=== PATIENT | male | born 1960 | race Caucasian/White ===

== ENCOUNTER 2022-03-13 11:50 | Inpatient (IN) | payer OTHER ==
[~2022-03-13] VITALS: Ht 190.5 cm; Wt 80.9 kg
[2022-03-13 12:36] LABS: BASOPHILS ABSOLUTE AUTO 0.09 K/mm3 (0.00-0.23); BASOPHILS PERCENT AUTO 0 % (0-2); EOSINOPHILS ABSOLUTE AUTO 0.02 K/mm3 (0.00-0.68); EOSINOPHILS PERCENT AUTO 0 % (0-6); Hematocrit 37.1 % (37.0-53.0); Hemoglobin 12.2 g/dL (13.5-17.5); IMMATURE GRAN ABSOLUTE AUTO 0.96 K/mm3 (0.00-0.10); IMMATURE GRAN PERCENT AUTO 3 % (0-1); LYMPHOCYTES ABSOLUTE AUTO 0.58 K/mm3 (0.84-5.20); LYMPHOCYTES PERCENT AUTO 2 % (21-46); MONOCYTES ABSOLUTE AUTO 1.72 K/mm3 (0.16-1.47); MONOCYTES PERCENT AUTO 6 % (4-13); Mean Corpuscular HGB 28.2 pg (26.0-34.0); Mean Corpuscular HGB Conc 32.9 g/dL (31.5-36.5); Mean Corpuscular Volume 86 fL (80-100); Mean Platelet Volume 10.7 fL (9.1-12.4); NEUTROPHILS PERCENT AUTO 89 % (41-73); Platelet Count 261 K/mm3 (150-400); RDW Coefficient Variation 13.6 % (11.7-14.2); RDW Standard Deviation 42.9 fL (35.1-46.3); Red Blood Cell Count 4.33 M/mm3 (4.30-5.90); White Blood Cell Count 29.77 K/mm3 (4.00-11.30)
[2022-03-13 12:53] LABS: Albumin, Blood 1.5 g/dL (3.4-5.0); Albumin/Globulin Ratio 0.3 (0.8-1.8); Bilirubin, Direct 0.7 mg/dL (0.0-0.3); Bilirubin, Indirect 0.5 mg/dL (0.1-0.7); Bilirubin, Total 1.2 mg/dL (0.1-1.0); Bun/Creatinine Ratio 41.6 (12.0-20.0); Calcium, Blood 8.3 mg/dL (8.5-10.1); Creatinine, Blood 0.75 mg/dL (0.60-1.20); Globulin, Blood 5.1 g/dL (2.2-4.0); Magnesium, Blood 1.9 mg/dL (1.6-2.4); Phosphorus, Blood 3.1 mg/dL (2.5-4.9); Potassium, Blood 4.3 mmol/L (3.5-5.5); Total Protein, Blood 6.6 g/dL (6.4-8.2)
[2022-03-13 13:10] LABS: International Normalized Ratio 1.15
[2022-03-13 13:27] LABS: Influenza A, PCR NEGATIVE (NEGATIVE); Influenza B, PCR NEGATIVE (NEGATIVE); Resp Syncytial Virus, PCR NEGATIVE (NEGATIVE); SARS-Cov-2 (COVID-19) PCR, MMC NEGATIVE (NEGATIVE)
[2022-03-13 13:49] LABS: Source, Urine Clean Catch
[2022-03-13 14:15] LABS: Appearance, Urine Clear (Clear); Bilirubin, Urine Neg (Neg); Blood, Urine 1+ (Neg); Color, Urine Yellow (P-Yellow); Glucose Qualitative, Urine 4+ (Neg); Ketones, Urine 4+ (Neg); Leukocyte Esterase, Urine Neg (Neg); Nitrite, Urine Neg (Neg); Protein, Urine Neg (Neg); Specific Gravity, Urine 1.025 (1.003-1.022); Urobilinogen, Urine 1+ (Normal)
[2022-03-13 14:34] LABS: Red Blood Cells, Urine 0-2 /hpf (0-2); White Blood Cells, Urine 0-2 /hpf (0-5)
[2022-03-13 14:35] LABS: Bacteria Mod /hpf; Squamous Epithelial Cells Not Seen /hpf (Few)
--- NOTE | 2022-03-13 14:50 | NUR ---
PT HERE FROM CT/X-RAY VIA [facility]. 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 PT HAS FERNÁNDEZ. IV X 2. ALERT AND ORIENTED. History, Chart, Medications and Allergies reviewed before start of procedure.
[2022-03-13 16:17] LABS: Base Excess Venous -13.5 mmol/L; Bicarbonate Venous 14.7 mmol/L (24.0-30.0); PCO2 Venous 33.6 mmHg (38-42); PO2 Venous 77.1 mmHg (38-42); pH Blood Venous 7.23 (7.34-7.37)
--- NOTE | 2022-03-13 16:23 | NUR ---
03/13/22 1623 JOSE HALL PLACED PRIOR TO ENTERING OR.
[2022-03-13 16:48] LABS: PCO2 Arterial 40.2 mmHg (35-45); PO2 Arterial 402 mmHg (80-100); pH Blood Arterial 7.26 (7.35-7.45)
[2022-03-13 18:35] LABS: Calcium, Blood 7.8 mg/dL (8.5-10.1); Creatinine, Blood 0.67 mg/dL (0.60-1.20); Potassium, Blood 4.5 mmol/L (3.5-5.5)
--- NOTE | 2022-03-13 18:57 | NUR ---
PT TO ICU FROM OR AT 1750. PT ARRIVES INTUBATED, PLACED ON VENT WITH SETTINGS AC 16/450/5/45%. 8.0 TUBE, 26 AT LIP. PROPOFOL STARTED @ 25 MCG/KG/MIN. 2 LR BOLUSES RUNNING FROM OR, PER OR STAFF, INSULIN GTT NOT RUNNING AND PT WAS GIVEN A "5 UNIT BOLUS OVER 30 MINS", CBG 465 ON ARRIVAL. VITAL SIGNS STABLE ON ARRIVAL. PT HAS LEFT LOWER EXTREMITY AMPUTATION COVERED WITH CLEAN DRESSING, DAVOL WOUND SUCTION WITH SANGUIOUS OUTPUT. REVENUE ANALYST TO REVIEW ADMIT ORDERS AND MAKE NECESSARY ADJUSTMENTS. WILL REPORT TO ONCOMING NURSE.
[2022-03-13 20:13] LABS: PCO2 Arterial 28.7 mmHg (35-45); PO2 Arterial 150 mmHg (80-100); pH Blood Arterial 7.36 (7.35-7.45)
--- NOTE | 2022-03-13 21:20 | NUR ---
ASSUMED CARE. PT STARTED TO WAKE UP PULLING AGAINST RESTRAINTS AND TRYING TO SIT UP. ORIENTED HIM TO SITUATION, HE GRIPPED TO UNDERSTANDING BUT WAS GETTING VERY AGGITATED. SHOOK HIS HEAD NO TO PAIN. INCREASED PROPOFOL TO 40 FOR FEW MINUTES UNTIL 4MG OF VERSED WAS GIVEN THEN IT WAS TURNED BACK DOWN TO 25MCQ. NEURO INTACT. LS DIM IN BASES, CLEAR UPPER LOBES. COUGH MOIST, SUCTION WHITE THICK SECRETIONS FROM ETT. ETT 8/26 AT LIPS. AC/VC SETTINGS 16/450/5/45%. TENDS TO BREATH OVER VENT AT 21-24 BREATHS/MIN. SINUS ON MONITOR WITH RATE IN THE 90'S. BLOOD SUGAR 433, STARTED INSULIN DRIP AT 1 UNIT, NOW AT 2 UNITS FOR BLOOD SUGAR 402. LR STARTED AT 200ML/HR. NEW IV TO LEFT FA 20G. SCD PLACED. ABD SOFT NON-TENDER, ATTENDS DRY. FERNÁNDEZ BRIGHT ORANGE URINE, CATH CARE PERFORMED. HELD PO MEDS OG TUBE IS NOT ABLE TO BE VERIFED ON XRAY. DEVOL WOUND SUCTION DRAIN TO LEFT BKA, DRESSING INTACT, BRIGHT RED DRAINAGE IN TUBE ONLY. WILL CONTINUE TO MONITOR.
[2022-03-13 21:31] LABS: Bun/Creatinine Ratio 42.9 (12.0-20.0); Calcium, Blood 8.1 mg/dL (8.5-10.1); Creatinine, Blood 0.72 mg/dL (0.60-1.20); Potassium, Blood 4.8 mmol/L (3.5-5.5)
[2022-03-13 22:22] LABS: Source, Urine Foley catheter
[2022-03-13 22:27] LABS: Bilirubin, Urine Neg (Neg); Blood, Urine 1+ (Neg); Glucose Qualitative, Urine 4+ (Neg); Ketones, Urine 4+ (Neg); Leukocyte Esterase, Urine Neg (Neg); Nitrite, Urine Neg (Neg); Protein, Urine 2+ (Neg); Specific Gravity, Urine 1.025 (1.003-1.022); Urobilinogen, Urine 1+ (Normal)
[2022-03-13 22:29] LABS: Appearance, Urine Clear (Clear); Color, Urine Yellow (P-Yellow)
[2022-03-13 22:34] LABS: Amorphous Light (0-Heavy); Bacteria Few /hpf; Red Blood Cells, Urine 0-2 /hpf (0-2); Squamous Epithelial Cells Not Seen /hpf (Few); White Blood Cells, Urine 0-2 /hpf (0-5)
[2022-03-14 03:22] LABS: Hematocrit 29.4 % (37.0-53.0); Hemoglobin 9.5 g/dL (13.5-17.5); Mean Corpuscular HGB 28.1 pg (26.0-34.0); Mean Corpuscular HGB Conc 32.3 g/dL (31.5-36.5); Mean Corpuscular Volume 87 fL (80-100); Mean Platelet Volume 10.3 fL (9.1-12.4); Platelet Count 206 K/mm3 (150-400); RDW Coefficient Variation 13.4 % (11.7-14.2); RDW Standard Deviation 42.4 fL (35.1-46.3); Red Blood Cell Count 3.38 M/mm3 (4.30-5.90); White Blood Cell Count 25.42 K/mm3 (4.00-11.30)
[2022-03-14 03:39] LABS: BAND PERCENT MAN 19 % (0-8); BASOPHILS PERCENT MAN 0 % (0-2); EOSINOPHILS PERCENT MAN 0 % (0-6); LYMPHOCYTES ABSOLUTE MAN 0.25 K/mm3 (0.84-5.20); LYMPHOCYTES PERCENT MAN 1 % (21-46); MONOCYTES ABSOLUTE MAN 1.77 K/mm3 (0.16-1.47); MONOCYTES PERCENT MAN 7 % (4-13); MYELOCYTE ABSOLUTE MAN 0.25 K/mm3 (0.00-0.00); MYELOCYTE PERCENT MAN 1 % (0-0); NEUTROPHILS ABSOLUTE MAN 23.13 K/mm3 (1.96-9.15); SEG NEUTROPHILS PERCENT MAN 72 % (41-73); TOTAL CELLS COUNTED 100
[2022-03-14 03:47] LABS: Magnesium, Blood 1.7 mg/dL (1.6-2.4); Thyroid Stimulating Hormone 0.482 uIU/mL (0.360-4.800)
[2022-03-14 03:48] LABS: Albumin, Blood 1.2 g/dL (3.4-5.0); Albumin/Globulin Ratio 0.3 (0.8-1.8); Bilirubin, Total 0.9 mg/dL (0.1-1.0); Bun/Creatinine Ratio 37.8 (12.0-20.0); Calcium, Blood 7.6 mg/dL (8.5-10.1); Creatinine, Blood 0.74 mg/dL (0.60-1.20); Globulin, Blood 4.4 g/dL (2.2-4.0); Potassium, Blood 4.4 mmol/L (3.5-5.5); Total Protein, Blood 5.6 g/dL (6.4-8.2)
--- NOTE | 2022-03-14 03:59 | NUR ---
WHEN REPOSITIONING THE PT'S RIGHT HAND FOR BLOOD SUGAR CHECKS. NOTICED THAT THERE WAS PINK TINGED FLUID RUNNING DOWN HAND AND SEVERAL SPOTS ON BEDDING. APPARENTLY WHEN THE PATIENT WAS PULLING AGAINST RESTRAINTS HE MUST OF OPENED UP AN ABCESS THAT HE HAD ON THE LEFT MIDDLE FINGER KNUCKLE AREA. WHEN COMPRESSED THERE WAS EXCESSIVE AMOUNT OF PUS DRAINAGE THAT CAME OUT. THERE WAS A SMALL OPENING THAT WAS DEEP DOWN TO THE KNUCKLE, TUNNELING IS NOTED IN A 180 CIRCUMFRANCE AND UP AND OVER THE KNUCKLE DOWN INTO HAND. AREAS IS SLIGHTLY DISCOLORED NOW RED IN TONE, SWELLING WAS NOTED BEFORE BUT THERE IS MORE TO THE AREA THEN PREVIOUS ASSESSMENT. THERE WAS DRY FLACKY SKIN PRIOR THAT WAS NOTED DURING THE BATH BUT NO OPENING. CLEANSED, AND WRAPPED WITH GAUZE. PIC IN CHART. AREA NEEDS TO HAVE I&D DONE.
--- NOTE | 2022-03-14 05:39 | NUR ---
SHIFT SUMMARY; PT REMAINS SEDATED ON PROPOFOL 20MCQ/HR. ABLE TO FOLLOW COMMANDS AND ANSWER QUESTIONS WHEN SEDATION IS LIFTED. DOES TEND TO PULL AT RESTRAINTS AND GET AGGITATED EASILY WHEN SEDATION IS LIFTED. DIMINISHED LS T/O. MOIST COUGH, THICK WHITE MODERATE AMOUNT OF SECRETIONS VIA ETT. VENT SETTINGS REMAIN THE SAME AT 16/450/5, FIO2 DECREASED TO 30%, SATS REMAIN 100%. STILL TENDS TO OVER BREATH THE VENT WITH RATES 20-24. SINUS ON MONITOR WITH A FEW EPISODES OF AFIB THAT RATE NEVER GOT OVER 110. AFIB ONLY LAST FOR FEW MIN. BP SOFT SYSTOLIC IN THE 90'S, MAP >65. EDEMA NOTED TO RLE AND RIGHT HAND. ABCESS THAT OPENED UP THIS AM TO RIGHT HAND, WITH COPIOUS PURLENT DRAINAGE, SEVERE UNDERMINING THAT WENT DOWN FINGER AND HAND IN A 180 CIRCUMFRANCE. SITE CAN BENIFIT FROM I&D, AND CT SCAN. POSITIVE BLOOD CULTURE GRAM (-) COCCI. SURGICAL WOUND DRESSING HAS REMAINED INTACT, DEVOL DRAINAGE CONTAINER ONLY HAS DRAINAGE IN THE TUBE, NOT ENOUGH TO COUNT. OG NEVER HOOKED UP TO SUCTION AND PO MEDS WITHHELD OG TUBE WAS NEVER VERIFIED IN XRAY, WAS NOT ABLE TO BE SEEN. INSULIN CURRENTLY AT 6 UNITS LAST BLOOD SUGAR JUST BELOW 300, WILL GET ORDER FOR D5 AND START PER ORDERS. GAP IS CLOSED. ATTEMPTED TO CALL TO GIVE UPDATE, LATER SHE RETURNED CALL FROM ER CONFUSED. FOUND OUT SHE WAS BEING ADMITTED FOR INFECTION ON 3RD FLOOR. BROTHER GURDEEP ALSO CALLED BUT IS NOT ON THE LIST, INFORMED HIM HE NEEDS TO CONTACT UNTIL PATIENT IS ABLE TO GIVE CONSENT. FERNÁNDEZ OUTPUT 1200. WILL REPORT TO DAYSVTFT.
--- NOTE | 2022-03-14 09:21 | NUR ---
ASSUMED CARE BEDSIDE REPORT FROM KALE THORNTON AT 0700. PT INTUBATED AND SEDATED. PROPOFOL GTT INFUSING. PT FOLLOWS COMMANDS. VENT CHANGED TO SPONT 8/5/30%. LUNGS CLEAR. SMALL AMOUNT OF THIN CLEAR SECRETIONS FROM ETT. OGT PLACED TO LIS. SR, RATE 70'S. BP STABLE. FERNÁNDEZ PATENT, DRAINING YELLOW URINE c SEDIMENT TO GRAVITY. DRESSING TO L BKA, DRAIN INTACT, SCANT SANGENOUS DRAINAGE IN TUBING. WOUND TO RIGHT HAND, WILL DISCUSS c SURGEON. INSULIN AND D5 PLACED ON STANDBY. DR COHN ROUNDED. PLAN FOR EXTUBATION THIS SHIFT. WILL CONTINUE TO MONITOR.
[2022-03-14 13:34] LABS: Vancomycin, Trough 19.3 ug/mL (5.0-10.0)
--- NOTE | 2022-03-14 17:37 | NUR ---
SHIFT SUMMARY PT EXTUBATED THIS SHIFT, 1130. TOLERATED WELL. STRONG COUGH. ON RA, O2 SATS >93%. LUNGS CLEAR. PASSED BEDSIDE SWALLOW, ADVANCED DIET TO MECH SOFT. DR JOHNSON ROUNDED. WILL CHANGE DRESSING TOMORROW. C/D/I. RIGHT HAND ASSESSED AND PACKED c 1/4 PACKING. PURLENT DRAINAGE OUT. AT APPROX 1600, PT BEGAN TO DEVELOP FEVER. CURRENTLY 103.1, HAS NOT RESPONDED TO TYLENOL OR FANS. LEFT MESSAGE c DR JOHNSON, CALLED DR LEONARDO. STATES TO BE EXPECTED c POSSIBLE ENDOCARDITIS. TO BE MANAGED c TYLENOL. PT DENIES PAIN. PT MORE LETHARGIC BUT WAKES c VERBAL STIMULI AND ANSWERS QUESTIONS APPROPRIATELY. FERNÁDNEZ PATENT, DRAINING 800 ML ORANGE URINE c SEDIMENT TO GRAVITY. WILL CONTINUE TO MONITOR UNTIL REPORT TO ONCOMING NURSE.
--- NOTE | 2022-03-14 20:26 | NUR ---
ASSUMED CARE. AOX3, ABLE TO ANSWER QUESTIONS APPROPRIATLY AND MAKE NEEDS KNOWN, DROWSY TENDS TO FALL RIGHT BACK TO SLEEP WHEN ALONE. DIAPHORETIC TO THE POINT LEADS ARE COMING OFF. REPLACED LEADS, AND PLACED FAN ON HIM. TEMP CURRENTLY 101 AND DECREASING. DENIES ANY PAIN OR DISCOMFORT. LS DIM IN BASES, COUGH IS PRODUCTIVE ENCOURAGED SPITTING SPUTUM OUT HE SWALLOWED IT, GAVE SUCTION TUBING. BLOOD SUGAR 386, MEDS GIVEN. DRESSING TO RIGHT HAND CDI WITH PACKING STRIP IN PLACE. LEFT BKA DRESSING CDI, SITE IS WNL, NO REDNESS, INCREASE IN PAIN, OR INCREASE IN SWELLING. FERNÁNDEZ PATENT AND DRAINING. REPOSITIONED. GAVE MORE WATER. IVF INFUSING AND TKO. CALL LIGHT IS IN REACH.
[2022-03-15 03:30] LABS: BASOPHILS ABSOLUTE AUTO 0.04 K/mm3 (0.00-0.23); BASOPHILS PERCENT AUTO 0 % (0-2); EOSINOPHILS ABSOLUTE AUTO 0.04 K/mm3 (0.00-0.68); EOSINOPHILS PERCENT AUTO 0 % (0-6); Hematocrit 27.7 % (37.0-53.0); Hemoglobin 9.3 g/dL (13.5-17.5); IMMATURE GRAN ABSOLUTE AUTO 0.56 K/mm3 (0.00-0.10); IMMATURE GRAN PERCENT AUTO 3 % (0-1); LYMPHOCYTES ABSOLUTE AUTO 0.83 K/mm3 (0.84-5.20); LYMPHOCYTES PERCENT AUTO 4 % (21-46); MONOCYTES ABSOLUTE AUTO 1.57 K/mm3 (0.16-1.47); MONOCYTES PERCENT AUTO 7 % (4-13); Mean Corpuscular HGB 28.9 pg (26.0-34.0); Mean Corpuscular HGB Conc 33.6 g/dL (31.5-36.5); Mean Corpuscular Volume 86 fL (80-100); Mean Platelet Volume 10.9 fL (9.1-12.4); NEUTROPHILS ABSOLUTE AUTO 18.09 K/mm3 (1.96-9.15); NEUTROPHILS PERCENT AUTO 86 % (41-73); Platelet Count 168 K/mm3 (150-400); RDW Coefficient Variation 13.7 % (11.7-14.2); RDW Standard Deviation 42.5 fL (35.1-46.3); Red Blood Cell Count 3.22 M/mm3 (4.30-5.90); White Blood Cell Count 21.13 K/mm3 (4.00-11.30)
[2022-03-15 03:49] LABS: Albumin, Blood 1.1 g/dL (3.4-5.0); Anion Gap 7 mmol/L (6-16); Blood Urea Nitrogen 29 mg/dL (8-24); Bun/Creatinine Ratio 37.3 (12.0-20.0); CO2, Blood 26 mmol/L (21-32); Calcium, Blood 7.2 mg/dL (8.5-10.1); Chloride, Blood 96 mmol/L (98-108); Creatinine, Blood 0.78 mg/dL (0.60-1.20); Glomerular Filtration Rate 101 (60-); Glucose, Blood 388 mg/dL (70-99); Phosphorus, Blood 2.5 mg/dL (2.5-4.9); Potassium, Blood 4.4 mmol/L (3.5-5.5); Sodium, Blood 129 mmol/L (136-145)
--- NOTE | 2022-03-15 07:04 | NUR ---
ASSUMED CARE OF PT AT 0340. REPORT RECEIVED. PT PRESENTS IN BED. ALERT WHEN HE IS AWAKE. NO COMPLAINTS OF PAIN AT THIS TIME. DRESSING TO LEFT STUMP CLEAN DRY AND INTACT. TOLERATES TURNS IN BED. HAVE TITRATED O2 NASAL CANNULA DOWN TO ROOM AIR. MAINTAINS > 90 PERCENT SATURATION. WILL CONTINUE TO MONITOR PT, AND WILL REPORT OFF TO ONCOMING RN.
--- NOTE | 2022-03-15 12:51 | NUR ---
IN TO REDRESS WOUNDS. LEFT LEG STUMP TAKEN DOWN TO SKIN, SUSY INTACT, NO DRAINAGE, INCISION LINE C/D/I. PATELLA WITH REDDENED AREA NOTED, DR. MO DRESSED WITH FOAM BANDAGE UNDER THE POST OP STOCKINETTE. RIGHT HAND WOUND ASSESSED, CONTINUES WITH PINK PURULENT DRAINAGE FROM "STAB" LIKE HOLE IN THE RIGHT MIDDLE KNUCKLE. REDRESSED WITH 1/4" PACKING, ADAPTIC (NON- ADHERENT) DRESSING AND KERLIX. ORDERS FOR DRESSING CHANGES RECEIVED. PT HAD A DIFFICULT TIME HOLDING UP HIS STUMP FOR . HE HAD TO BE FREQUENTLY REMINDED TO LIFT HIS LEG. DENIES ANY PAIN. STATES HE IS HAVING SOME "KIDNEY" PAIN HE IS EXPERIENCING "THIS NEW KIDNEY ISSUE". WHEN DISCUSSED WITH HIM THAT ACUTE KIDNEY INJURY DOESN'T USUALLY INDICATE PAINFUL KIDNEYS, QUESTIONED AGAIN RE: THAT PAIN, SAID, "HE JUST NOTICES IT".
[2022-03-15 14:01] LABS: Vancomycin, Trough 26.5 ug/mL (5.0-10.0)
--- NOTE | 2022-03-15 16:01 | NUR ---
THIS AFTERNOON, PT HAS BEEN GOING IN AND OUT OF AFIB, RATE IS INCREASING TO THE LOW 100'S. PT HAS BEEN RESTING. BP STABLE.
--- NOTE | 2022-03-15 17:12 | NUR ---
Review of patient decline with demographic analyst. Review of patient in rounds. Called to have a careful conversation about future care needs and code status. has lots of family support through social media and texting. She does not have local support. Their son arrived today with his family. is having great stress in that she was supposed to start a promotion this wee and could not due to his illness. 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 She want to be with patent but feels his aggitation is worse when she is here. She states he was not complaining of any issues until recently. We discussed prognosis and brief discussion of he might not imporve enough to discuss oncology care. She reviewed some of what doctor Sanjeev told her and confirmed that he was preparing her for possile decline. She is tarting to process his cancer diagnosis. We discussed that he could end up back on the ventilator. She knows that may be futility. She relayed a serious discussion they had about his scientology princess and his desire to fight to the . Made her promise to do everying possible to save him. Advised her we will respect his wishes and also support her through the process. Will follow up.
--- NOTE | 2022-03-15 17:38 | NUR ---
RUBIO CONTINUES WITH INTERMITTENT AFIB/SINUS TACH RATE 100-110. BREATHING EASY NON LABORED, GOOD COUGH AND DEEP BREATHE, BP STABLE. RESTLESS ALL AFTERNOON, CONTINUES TO SAY THAT HE DOESN'T GET ANY REST IN THE HOSPITAL. RIGHT HAND DRSG WITH EVIDENCE OF OOZING. DIDN'T FEEL LIKE EATING HIS DINNER, ONLY HAD A FEW BITES. FERNÁNDEZ WITH >1L OUTPUT. LR @ 75ML/HR CONTINUES. BLOOD SUGARS REMAIN ELEV ALL T/O THE DAY, LUNCH AND DINNER BOTH 371 WITH 10U COVERAGE. PT STATES DOES NOT USE INSULIN AT HOME. RIGHT FOOT WITH BRUISING NOTED ON THE TOP OF FOOT. NO OTHER CHANGES, WILL CONTINUE TO MONITOR AND TREAT, REPORTING OFF TO NEXT SHIFT WHEN ABLE.
--- NOTE | 2022-03-15 23:32 | NUR ---
PT ARRIVED TO ROOM ON UNIT AT 2330 W/ POSSESSIONS.
[2022-03-16 05:44] LABS: Hematocrit 32.8 % (37.0-53.0); Hemoglobin 10.8 g/dL (13.5-17.5); Mean Corpuscular HGB 28.2 pg (26.0-34.0); Mean Corpuscular HGB Conc 32.9 g/dL (31.5-36.5); Mean Corpuscular Volume 86 fL (80-100); Mean Platelet Volume 11.2 fL (9.1-12.4); Platelet Count 214 K/mm3 (150-400); RDW Coefficient Variation 13.4 % (11.7-14.2); RDW Standard Deviation 41.6 fL (35.1-46.3); Red Blood Cell Count 3.83 M/mm3 (4.30-5.90); White Blood Cell Count 19.44 K/mm3 (4.00-11.30)
[2022-03-16 06:16] LABS: BAND PERCENT MAN 4 % (0-8); BASOPHILS PERCENT MAN 0 % (0-2); EOSINOPHILS ABSOLUTE MAN 0.19 K/mm3 (0.00-0.68); EOSINOPHILS PERCENT MAN 1 % (0-6); LYMPHOCYTES ABSOLUTE MAN 0.58 K/mm3 (0.84-5.20); LYMPHOCYTES PERCENT MAN 3 % (21-46); METAMYELOCYTE ABSOLUTE MAN 0.38 K/mm3 (0.00-0.00); METAMYELOCYTE PERCENT MAN 2 % (0-0); MONOCYTES ABSOLUTE MAN 1.74 K/mm3 (0.16-1.47); MONOCYTES PERCENT MAN 9 % (4-13); Magnesium, Blood 1.5 mg/dL (1.6-2.4); NEUTROPHILS ABSOLUTE MAN 16.52 K/mm3 (1.96-9.15); SEG NEUTROPHILS PERCENT MAN 81 % (41-73); TOTAL CELLS COUNTED 100
[2022-03-16 06:19] LABS: Albumin, Blood 1.2 g/dL (3.4-5.0); Anion Gap 7 mmol/L (6-16); Blood Urea Nitrogen 18 mg/dL (8-24); Bun/Creatinine Ratio 33.9 (12.0-20.0); CO2, Blood 25 mmol/L (21-32); Calcium, Blood 7.6 mg/dL (8.5-10.1); Chloride, Blood 95 mmol/L (98-108); Creatinine, Blood 0.53 mg/dL (0.60-1.20); Glomerular Filtration Rate 113 (60-); Glucose, Blood 385 mg/dL (70-99); Phosphorus, Blood 2.2 mg/dL (2.5-4.9); Potassium, Blood 4.3 mmol/L (3.5-5.5); Sodium, Blood 127 mmol/L (136-145)
--- NOTE | 2022-03-16 06:30 | NUR ---
TRANSFERRED TO UNIT FROM ICU @ 2330. A&Ox4. PLEASANT AND COOPERATIVE WITH CARE. WOUND TO RIGHT MIDDLE FINGER REPACKED AND REBANDAGED. WOUND CARE SUPPLIES IN PT ROOM. FERNÁNDEZ CATH FOR URINARY RETENTION PATENT AND DRAINING TO GRAVITY. IV SITES x3 PATENT AND FLUSHING; LR INFUSING @ 75mL/hr. MAINTAINING O2 >90% ON 2L/min VIA NC. REPORTS HE SLEPT BETTER KNOWING HE IS NEARER HIS WHO IS ANOTHER PATIENT ON THIS FLOOR. MEDICATED x1 W/ 650mg APAP FOR C/O BACK PAIN. NO OTHER CONCERNS NOTED DURING SHIFT. REPORT TO ONCOMING RN.
--- NOTE | 2022-03-16 06:44 | NUR ---
PT REQUESTS TO BE LEFT UNDISTURBED FOR SHIFT CHANGE REPORT THIS MORNING AND NOT DISTURBED UNTIL BREAKFAST/MEDS.
--- NOTE | 2022-03-16 18:16 | NUR ---
SHIFT SUMMARY NO ACUTE CHANGES DURING SHIFT. PT ALERT AND ORIENTED, FOLLOWS COMMANDS. IV FLUIDS D/C'D. DRESSING TO R HAND AND LBKA CHANGED PER ORDERS. PT UP TO CHAIR FOR DINNER. FERNÁNDEZ IN PLACE, DRAINING TO GRAVITY. CALL LIGHT WITHIN REACH.
--- NOTE | 2022-03-17 04:00 | NUR ---
A&Ox4. PLEASANT AND COOPERATIVE WITH CARE. DECLINES O2 VIA NC AND HAS MAINTAINED O2 >92% T/O EVENING WHEN CHECKED. MEDICATED PRN APAP AT 0400 C/O LEFT SHOULDER PAIN. SLEPT MAJORITY OF THE NIGHT, WHICH HE REPORTS IS THE MOST HE'S SLEPT IN DAYS. EXPRESSES GUILT R/T NO LONGER BEING ABLE TO CARE FOR SON AND . ENCOURAGED HIM AND EDUCATED ON RESOURCES WITHIN THE COMMUNITY THE HOSPITAL CAN HELP SET HIM AND HIS FAMILY UP WITH. HE WILL DISCUSS WITH SALES AMBASSADOR. NO ACUTE CONCERNS T/O NIGHT.
[2022-03-17 05:54] LABS: Albumin, Blood 1.2 g/dL (3.4-5.0); Anion Gap 6 mmol/L (6-16); Blood Urea Nitrogen 12 mg/dL (8-24); Bun/Creatinine Ratio 22.9 (12.0-20.0); CO2, Blood 27 mmol/L (21-32); Calcium, Blood 7.8 mg/dL (8.5-10.1); Chloride, Blood 94 mmol/L (98-108); Creatinine, Blood 0.52 mg/dL (0.60-1.20); Glomerular Filtration Rate 114 (60-); Glucose, Blood 310 mg/dL (70-99); Phosphorus, Blood 2.7 mg/dL (2.5-4.9); Potassium, Blood 4.1 mmol/L (3.5-5.5); Sodium, Blood 127 mmol/L (136-145)
--- NOTE | 2022-03-17 18:01 | NUR ---
STUMP DRESSING CHANGE. CHANGED HIS L STUMP DRESSING. WOUND EDGES WELL APPROXIMATED, SUSY INTACT, NO DRAINAGE OR BLEEDING NOTED. MEPIPLEX ON HIS KNEE CAP INTACT & DID NOT CHANGE.
--- NOTE | 2022-03-17 19:12 | NUR ---
SHIFT SUMMARY PT A&O X 4. VSS. F/C INTACT & PATENT. PLEASANT & COOPERATIVE WITH ALL CARE. IS QUIET. BG's RANGING IN THE 300's & COVERED PER EMAR. DINNER BG CAME DOWN TO 192. PT IS APPREHENSIVE ABOUT GETTING OUT OF BED FOR THE 1ST TIME. ENCOURAGED HIM. EXPLAINED THAT PHYS THERAPY WILL LIKELY BEGIN WORKING WITH HIM TOMORROW.
--- NOTE | 2022-03-18 04:45 | NUR ---
SHIFT SUMMARY PATIENT WITH LOW GRADE TEMPERATURE 99.3. AXOX 4 AND BEDREST. LEFT BKA. PIVS REMAIN INTACT. CBG 192. ON ROOM AIR. DENIES CHEST PAIN, SOB, AND N/V. VSS. FERNÁNDEZ PATENT AND DRAINING TO GRAVITY. SPOUSE IN ROOM AT SHIFT CHANGE. SLEPT MOST OF THE SHIFT. CALL LIGHT IN REACH. BED IN LOWEST POSITION. WILL CONTINUE TO MONITOR UNTIL DAY SHIFT NURSE ASSUMES CARE.
[2022-03-18 05:33] LABS: Hematocrit 31.9 % (37.0-53.0); Hemoglobin 10.7 g/dL (13.5-17.5); Mean Corpuscular HGB 28.3 pg (26.0-34.0); Mean Corpuscular HGB Conc 33.5 g/dL (31.5-36.5); Mean Corpuscular Volume 84 fL (80-100); Mean Platelet Volume 10.3 fL (9.1-12.4); Platelet Count 299 K/mm3 (150-400); RDW Coefficient Variation 13.6 % (11.7-14.2); RDW Standard Deviation 41.4 fL (35.1-46.3); Red Blood Cell Count 3.78 M/mm3 (4.30-5.90); White Blood Cell Count 16.42 K/mm3 (4.00-11.30)
[2022-03-18 06:05] LABS: Bun/Creatinine Ratio 15.1 (12.0-20.0); Calcium, Blood 7.8 mg/dL (8.5-10.1); Creatinine, Blood 0.53 mg/dL (0.60-1.20); Magnesium, Blood 1.8 mg/dL (1.6-2.4); Potassium, Blood 3.8 mmol/L (3.5-5.5)
--- NOTE | 2022-03-19 04:11 | NUR ---
LADLE REPAIRMAN SUMMARY VSS. DRESSING OF LEFT BKA INTACT. NO NOTED DRAINAGE. FERNÁNDEZ DRAINING CLEAR ALEXANDRA. REQUESTED PAIN MEDS X 1 FOR BACK PAIN, NO C/O PAIN OF LEFT STUMP OF THIS WRITING. ASSISTED WITH REPOSITIONING. HOB ELEVATED. HAS BEEN RESTING QUIETLY OTHERWISE. CALL LIGHT IN REACH. RAILS UP X 2. WILL CONTNUE TO MONITOR
--- NOTE | 2022-03-19 16:05 | NUR ---
DAYSHIFT SUMMARY Patient doing well today, CBGs WNL, no SSI given. Patient worked with therapy, practiced rotating on right leg w/ FWW from bed to recliner. PT provided education to patient on strengthning thigh/leg muscles to prevent contractures in left/BKA. PT recommended not using a pillow to rest BKA on, instead straighten and rest flat on bed. MD at bedside, changed dressing on left BKA stump. Vitals stable, no other concerns at this time.
--- NOTE | 2022-03-19 17:18 | NUR ---
Pt. is awake in a recliner and welcomes my visit. Pt. is pleasant and rapport is quickly established. Pt. displays evidence of engagement and awareness of current condition and the need for therapy and a future prosthetic. Pt. 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 Considered issues of princess and belief, and established rapport. Prayed with Pt. and Pt. verbalized gratitude for the spiritual care visit.
--- NOTE | 2022-03-19 23:15 | NUR ---
PAINT TRIMMER PIPE BOWLS SUMMARY PT A/OX4; PLEASANT AND COOPERATIVE. PT SLEPT IN CHAIR T/O THE NIGHT; REPORTED THE BED WAS UNCOMFORTABLE/PAINFUL TO LAY IN. CALL LIGHT IN REACH. NO ACUTE CHANGES.
[2022-03-20 08:30] LABS: Hematocrit 33.3 % (37.0-53.0); Hemoglobin 10.8 g/dL (13.5-17.5)
[2022-03-20 09:23] LABS: Bun/Creatinine Ratio 22.6 (12.0-20.0); Calcium, Blood 7.7 mg/dL (8.5-10.1); Creatinine, Blood 0.53 mg/dL (0.60-1.20); Potassium, Blood 4.3 mmol/L (3.5-5.5)
--- NOTE | 2022-03-20 11:12 | NUR ---
ALERT AND ORIENTED, PLEASANT TO CARE, PT/OT WORKING WITH PATIENT NOW, PATIENT COMPLAINED OF 8/10 LEFT SHOULDER PAIN, REPORTED TO DR SEVILLA, DR SEVILLA TO ADD PAIN MEDICATIONS FOR PATIENT
--- NOTE | 2022-03-20 15:03 | NUR ---
Pt is awake in a reccliner and welcomes my visit. Spouse who is also a current Pt. (#[id number]) is present. Both Pts. are pleasant. Both are people of princess and display evidence that they have been well supported by their local gnosticism family. Re-establish rapport and prayed for both Pts. They both verbalize gratitude for the spiritual care visit.
--- NOTE | 2022-03-20 18:12 | NUR ---
ALERT AND ORIENTED MAKES NEEDS KNOWN, NO ACUTE CHANGES, PATIENT DENIES PAIN, MEDICATED WITH HYDROCODONE EARLIER FOR LEFT SHOULDER PAIN. LS DIMINISHED IN BASES, ENCOURAGE DEEP BREATHING. DENIES CP, VSS. ACTIVE BT, NO NV, BKA DRESSING TO BE CHANGED TOMORROW PER WILL RELAY TO PM RN, [place], CALL LIGHT WITH IN REACH
--- NOTE | 2022-03-21 04:39 | NUR ---
A&Ox4. PLEASANT AND COOPERATIVE WITH CARE. CALLS APPROPRIATELY. SLEPT IN RECLINER T/O SHIFT D/T DISCOMFORT EXPERIENCED IN BED. CATHETER PATENT AND DRAINING TO GRAVITY. REMOVED IV IN RAC FOR NON-USE PER PT REQUEST. NORCO x1 ADMINISTERED FOR C/O RT SHOULDER PAIN. NO ACUTE CONCERNS T/O SHIFT. WILL REPORT TO ONCOMING RN.
--- NOTE | 2022-03-21 14:14 | NUR ---
Spiritual Care Visit/Palliative Request Pt. is sitting up in a recliner and welcomes my visit. Rapport is quickly re-established. When healthcare goals and objectives for he and his family are discussed Pt. 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 Pt. displays evidence of being open to whatever it takes to be able to pursue these health goals and has verbalized trust in the care management he is receiving. We talked about sports, and I prayed with Pt. Pt. verbalized gratitude for the spiritual care visit.
--- NOTE | 2022-03-21 17:06 | NUR ---
Shift Summary A/O, calling for needs appropriately. Cooperative. Does not like to sleep in bed due to "many pressure points" causing discomfort and pain. Sleeps in recliner. XR of L shoulder obtained, santiago removed, and diet changed to regular textured per T.O. from Dr. Goss. Monitoring for void after santiago removal. Medicated x 1 for 8/10 L shoulder pain. 1-2p juanpablo steady and gait belt for transfers. Dressing changed by Dr. Burger this morning with this RN assist.
--- NOTE | 2022-03-21 21:20 | NUR ---
PT HAS MANY [facility] R/T COMMUNITY RESOURCES FOR NOW AND WHEN HE IS DC'D. HE HAS BEEN IN HOSP X 9 DAYS AND HAS NOT BEEN ABLE TO PAY HIS BILLS AND IS CONCERNED ON HOW HE IS SUPPOSED TO DO THIS. I WILL NOTIFY CHARGE AND REQUEST CARE MANAGEMENT TO DISCUSS RESOURCES.
--- NOTE | 2022-03-22 04:57 | NUR ---
A&Ox4. PLEASANT AND COOPERATIVE WITH CARE. VS AND GLUCOSE STABLE. C/O LT SHOULDER PAIN RELIEVED WITH APAP AND HOLD/COLD APPLICATION. CONTINUES TO SLEEP IN RECLINER FOR COMFORT. USING BEDSIDE URINAL APPROPRIATELY WITH 1000mL OUTPUT THIS EVENING. HAS QUESTIONS R/T COMPRESSED GAS EQUIPMENT MECHANIC, TRANSPORTATION AND ASSISTANCE WITH IADLs. SOCIAL SERVICE CONSULT PLACED AND CHARGE NOTIFIED. WILL REPORT TO ONCOMING RN.
--- NOTE | 2022-03-22 18:34 | NUR ---
SHIFT SUMMARY PT A&OX4 AND IN PLEASENT MOOD T/O SHIFT. PT VISITING IN ROOM TOLERATING. ABLE TO SERILIFT PT TO BSC/BED YOST IN CHAIR. VSS. STUMP REDRESSED AND ASSESSED THIS SHIFT. CALL LIGHT W/IN REACH, NO C/O PAIN.
--- NOTE | 2022-03-23 00:44 | NUR ---
PT AWAKE DURING SHIFT REPORT, SITTING IN RECLINER AT BS WATCHING TV. PT'S IN RM IN CHAIR WELL. PER REPORT, PT ABLE TO WORK WITH PT/OT TODAY. DR HERNANDEZ IN TODAY TO CK ON LBKA. PER PT, DRSG CHANGED BY DR HERNANDEZ. PT ABLE TO USE URINAL IN CHAIR. SKIN TO HANDS AND ARMS VERY DRY AND CRUSTY. NO C/O. DENIED FURTHER NEEDS. PT TO D/C TO SNF WHEN READY. CALL LT IN REACH.
--- NOTE | 2022-03-23 06:51 | NUR ---
A&Ox4. PLEASANT AND COOPERATIVE WITH CARE. SLEPT IN RECLINER T/O NIGHT AND REQUESTED CARE TO BE CLUSTERED AND NOT BE WOKEN, FREQUENTLY. WOUND TO RIGHT HAND RESOLVED. NO C/O PAIN OR DISCOMFORT. VOIDING. NO BM. NO ACUTE CONCERNS T/O SHIFT. WILL REPORT TO ONCOMING RN.
--- NOTE | 2022-03-23 18:53 | NUR ---
SHIFT SUMMARY PT A&OX4 AND IN PLEASENT MOOD. IN TO VISIT W/ PT DURING SHIFT. RESTED IN CHAIR T/O SHIFT. NO C/O PAIN. VSS. TOLERATING PO INTAKE WELL @ THIS TIME. CALL LIGHT W/IN REACH.
--- NOTE | 2022-03-24 04:11 | NUR ---
PT IS A/OX4, PLEASANT AND COOPERATIVE. THE PT DENIED ANY PAIN SO FAR THIS SHIFT. THE PT APPEARS TO BE BREATHING EASILY ON RA AT THIS TIME. THE PT CHOSE TO SLEEP IN HIS RECLINER T/O THE NIGHT, STATING THAT THE BED WAS TO UNCOMFORTABLE. PTS WAS IN TO VISIT WITH HIM BEFORE BEDTIME. CALL LIGHT IN REACH WILL CONTINUE TO MONITOR AND ASSESS FOR CHANGES
--- NOTE | 2022-03-24 17:03 | NUR ---
DISCHARGE PT A&OX4 @ TIME OF DC. PT PROVIDED W/ WRITTEN AND VERBAL DIRECTION. PT VERBALIZED UNDERSTANDING. MEDS FAXED TO [facility] ON [address]. TELE AND IV DC'ED. WC ESCORT OUT TO [facility], PROVIDING TRANSPORT.
--- NOTE | 2022-03-24 17:15 | NUR ---
SHIFT SUMMARY PT A&OX4 AND IN PLEASANT MOOD. IN TO SEE PT IN HIS ROOM. PT RESTED IN RECLINER T/O SHIFT. WOUND REDRESSED BY THIS RN THIS SHIFT, NO REDDNESS/DRAINAGE. DRESSING CDI. UP TO BSC W/ PURPLE LIFT IN ROOM. TOLERATING PO INTAKE WELL. AWAITING SNF PLACEMENT @ THIS TIME. CALL LIGHT W/IN REACH.
--- NOTE | 2022-03-24 17:36 | NUR ---
STUMP REDRESSED DRESSING SLIDE OFF STUMP, THIS RN REDRESSED THE INCISION W/ 4X4, KRULEX, MARCELO AND FRESH STUMP SOCK. STITCHES INTACT, SLIGHT PINKISH @ INCISION, NO DRAINAGE. PT DENIES PAIN.
--- NOTE | 2022-03-25 06:20 | NUR ---
SHIFT SUMMARY: NO ACUTE CHANGES,VSS, NO REPORTS OF PAIN OR DISCOMFORT. USING THE URINAL INDEPENDANTLY. DRSG TO LEFT STUMP IS CD&I. PATIENT PREFER'S TO SLEEP IN RECLINNER.
--- NOTE | 2022-03-25 18:24 | NUR ---
SHIFT SUMMARY NO ACUTE CHANGES DURING SHIFT. PT ALERT AND ORIENTED, FOLLOWS COMMANDS. DRESSING CHANGED BY SURGEON THIS AFTERNOON. PT IN RECLINER ALL DAY. NO C/O PAIN. CALL LIGHT WITHIN REACH.
--- NOTE | 2022-03-26 06:30 | NUR ---
SHIFT SUMMARY: PATIENT REPORTS NO PAIN, VSS, NO ACUTE CHANGES. COMFORTBALE IN RECLINNER. BRYON MALONEY IS CD&I. WILL CONTINUE TO MONITOR.
--- NOTE | 2022-03-27 05:43 | NUR ---
SHIFT SUMMARY NO ACUTE CHANGES TO PT CONDITION. JUST MEDICATED WITH TYLENOL FOR SOME MILD BACK PAIN. CALL LIGHT IS WITHIN PT REACH.
--- NOTE | 2022-03-27 17:39 | NUR ---
SHIFT SUMMARY NO ACUTE CHANGES DURING SHIFT. PT ALERT AND ORIENTED, FOLLOWS COMMANDS. PT WORKED WITH PHYSICAL THERAPY TODAY. L BKA DRESSING CHANGED TODAY, SUTURES INTACT TO INCISION SITE. PT MEDICATED WITH PRN MEDS X 1 TODAY FOR PAIN FOLLOWING PHYSICAL THERAPY. CONTINUE TO MONITOR. CALL LIGHT WITHIN REACH.
--- NOTE | 2022-03-28 04:57 | NUR ---
SHIFT SUMMARY NO ACUTE CHANGES TO PT CONDITION. PT HAS HAD NO COMPLAINTS THIS SHIFT. CALL LIGHT IS WITHIN HIS REACH.
--- NOTE | 2022-03-28 14:28 | NUR ---
Pt. is sitting up in a chair and welcomes my visit. Pt. is pleasant and raaport is re-established. Pt. is unsettled by the length of time projected to be fitted for a prosthetic leg. Through empathetic listening I attempt to normalize the Pt. experience. Pt. is engaged and encouraged, particularly with his 's clear diagnosis being confirmed through testing. Pt. asked this dog raiser to contact his pentecostalism. Prayed with Pt. This dog raiser will attempt to communicate with the pentecostalism.
--- NOTE | 2022-03-28 18:31 | NUR ---
SHIFT SUMMARY: NO ACUTE EVENTS. C/O LOW BACK PAIN THIS MORNING; ADEQUATE RELIEF WITH TYLENOL. STAYED IN RECLINER ALL DAY. WORKED WITH PHYSICAL THERAPY; LACKS MOTIVATION. USING URINAL INDEPENDENTLY. AWAITING PLACEMENT.
--- NOTE | 2022-03-29 05:57 | NUR ---
SUMMARY: PT A/OX4, SPECIFIES NEEDS AND IS PLEASANT AND COOPERATIVE W/CARE. HE REMAINED IN RECLINER T/O NOCTE BUT IS ABLE TO REPOSITION SELF FOR COMFORT AND USE URINAL AD SUJATHA. DX TO L.BKA CHANGED PER WOUND CARE ORDERS W/STUMP SOCK REPLACED. SUTURES INTACT AND WOUND EDGES WELL APPROXIMATED. VSS/AFEBRILE, NO ACUTE CHANGES. PLACEMENT PENDING. WCTM AND REPORT TO DAY RN.
--- NOTE | 2022-03-29 12:03 | NUR ---
Pt. is awake and welcomes my visit. This visit was short but I was able to let the Pt. know that I successfully communicated with his home restorationism as he requested the day before. Rapport was re-established and the Pt. verbalized gratitude for helping him reach out to his restorationism.
--- NOTE | 2022-03-29 15:54 | NUR ---
CALLED DR. MO'S OFFICE TO FIND OUT WHEN PT'S SUTURES SHOULD BE REMOVED. SURGERY WAS ON 03/13/22. SPOKE WITH NOLAN IN FRONT OFFICE, WHO STATED HE WOULD LEAVE TELEPHONE MESSAGE WITH PROVIDER.
--- NOTE | 2022-03-29 16:15 | NUR ---
Spiritual Care Nurse Request. Nurse requested miguel coat repair inspector to curing pickling packer food that had been delivewred to the Pt. but dropped off in ED. Leobardo food to Pt. Pt. verbalized gratitude for the delivery.
--- NOTE | 2022-03-29 19:24 | NUR ---
SHIFT SUMMARY: NO ACUTE EVENTS. DRESSINGS ON L BKA AND L PATELLA CHANGED TODAY. NO INSULIN COVERAGE NEEDED THIS SHIFT. C/O LOW BACK PAIN (LIKELY FROM SITTING IN CHAIR ALL THE TIME); MEDICATED WITH TYLENOL WITH ADEQUATE RELIEF. WORKED WITH PT/OT TODAY. HE AND HIS HAD DINNER TONIGHT.
--- NOTE | 2022-03-30 06:41 | NUR ---
SHIFT SUMMARY PT IS ALERT AND ORIENTED X4. THERE HAVE BEEN NO ACUTE CHANGES T/O THE NIGHT. VITALS ARE STABLE AND PT IS ON ROOM AIR. PT SPENT MOST OF THE TIME IN THE CHAIR. HE WAS TRANSFERED TO THE BED WITH 2 ASSIST, GAIT BELT AND FWW WHERE HE REMAINED FOR LESS THAN 2 HOURS. HE DENIES CHEST PAIN/PRESSURE. DENIES SOB. PT USING URINAL. CALL LIGHT IS WITHIN REACH.
--- NOTE | 2022-03-30 17:23 | NUR ---
SHIFT SUMMARY- PT ALERT AND ORIENTED AND CALLS APPROPRIATELY. 1-2 PA WITH TRANSFERS. PT HAD WOUND CARE DONE TODAY, HE NEEDS A SMALLER STUMP SOCK. PT MEDICATED FOR PAIN WITH TYLENOL PER HIS REQUEST FOR LOWER BACK PAIN. PAIN WELL MANAGED PER THE PT. PT RECIEVED A SPOUNGE BATH THIS AFTERNOON. HE STATES THE BED MAKES HIS BACK PAIN WORSE AND CHOOSES TO SIT UP IN THE RECLINER ALL DAY AND NIGHT, BLANCHING REDNESS NOTED ON BOTTOM. NO OTHER SIGNS OF SKIN BREAKDOWN. PT CURRENTLY SITTING UP IN THE RECLINER WAITING FOR DINNER NO CURRENT S&S OF DISTRESS NOTED WILL CTM AND PASS ON TO NIGHT RN IN BEDSIDE REPORT.
--- NOTE | 2022-03-31 05:57 | NUR ---
SHIFT SUMMARY: PT IS ALERT AND ORIENTED. PT IS CALM AND COOPERATIVE WITH CARE. PT CALLS APPROPRIATELY. PT IS A 1-2 ASSIST FOR TRANSFERS, SLEPT IN THE RECLINER ALL NIGHT. PT'S DRESSING ON L. BKA CAME OFF, NEW DRESSING APPLIED. SURGICAL SITE APPEARS TO BE HEALING WELL WITH NO SIGNS OF INFECTION. PT DENIES PAIN, NAUSEA, VOMITING, AND SOB. NO ACUTE CHANGES THIS SHIFT. WILL REPORT TO DAY NURSE.
--- NOTE | 2022-03-31 18:46 | NUR ---
SHIFT SUMMARY- PT ALERT AND ORIENTED 2PA TO THE BSC WHEN NEEDED, PT USES THE URINAL INDEPENDENTLY, PT REFUSES TO GET INTO THE HOSPITAL BED STATING IT CAUSES TOO MUCH BACK PAIN. PT CHOOSES INSTEAD TO SLEEP IN THE RECLINER. PT SPOUSE IS AT THE BEDSIDE RIGHT NOW IN HER RECLINER FROM ROOM 334. NO CURRENT S&S OF DISTRESS NOTED. WILL CTM AND PASS ON TO NIGHT RN IN BEDSIDE REPORT.
--- NOTE | 2022-04-01 03:39 | NUR ---
SHIFT SUMMARY: PT IS ALERT AND ORIENTED. PT IS CALM AND COOPERATIVE WITH CARE. PT CALLS APPROPRIATELY. PT IS A 2 PERSON ASSIST FOR TRANSFERS WITH Reed DURAN. PT'S IN THE ROOM VISITING AT START OF SHIFT. PT REPORTS BRIZUELA, GAVE PRN TYLENOL. PT DENIES NAUSEA, VOMITING, AND SOB. DC TO SNF PENDING INSURANCE APPROVAL. NO ACUTE CHANGES. WILL CONTINUE TO MONITOR.
--- NOTE | 2022-04-01 17:58 | NUR ---
PATIENT IS ALERT AND ORIENTED AND COOPERATIVE WITH CARE. PATIENT HAS SPENT THE DAY IN HIS RECLINER. HE CALLS APPROPRIATELY. HE HAS SPENT TIME WITH HIS SON AND TODAY. USES THE URINAL INDEPENDENTLY. NO NEW CONCERNS TODAY. WILL CONTINUE TO MONITOR
--- NOTE | 2022-04-02 07:45 | NUR ---
SHIFT SUMMARY NO SIGNIFICANT CHANGES NOTED BY THIS RN T/O SHIFT, DRESSING CHANGED D/T COMING UNDONE WHILE PT LAID IN CHAIR. SITE APPEARS INTACT, NO REDNESS NOTED. NO DRAINAGE FROM OLD DRESSING. PT AOX4, BREATHING APPEARS EVEN AND UNLABORED. NO APPARENT DISTRESS. PT DENIES SIGNIFICANT PAIN.
--- NOTE | 2022-04-02 15:03 | NUR ---
Pt. is awake in a recliner and welcomes my visit. Spouse, who is alos a Pt. is present. Both our pleasant, but quietly unsettled about the need to discharge home soon. Listen empathetically. Pt. verbalizes the challenge to spiritually trust God when this happens. Provide spiritual direction and counseling as well as emotional support. Pt. displayed evidence of resolve as he anticipates the challenge before him. Prayed with both Pt. and spouse. Both verbalized gratitude for the spiritual care visit.
--- NOTE | 2022-04-02 16:39 | NUR ---
SHIFT SUMMARY- PT INDEPENDANT IN ROOM. USES CALL LIGHT APPROPRIATELTY. VSS. APPETITE GOOD. A&O X3. BANDAGES CLEAN AND DRY. DIET APPROPRIATE TODAY. NO ACUTE CHANGES. PT UP IN CHAIR RESTING WITH CALL LIGHT IN REACH.
--- NOTE | 2022-04-03 03:56 | NUR ---
SHIFT SUMMARY ADMITTED FOR LEFT FOOT INFECTION/DKA. FULL CODE. LEFT BKA PERFORMED. DISCHARGE PLANNING STILL IN PROCESS. ACHS CHEMSTICKS. ADA DIET. PODIATRY CONSULT IS DR. MO. HE IS ON XARELTO. HX OF AFIB, NECROTIZING FASCITIS, ENDOCARDITIS. 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 HE HAS AN ADULT SON WITH AUTISM. MEDICATED ONCE THIS SHIFT FOR PAIN
[2022-04-03] MEDS ORDERED: BASAGLAR K100 UNIT/1 SC ×2 (11:59)
[2022-04-03] MEDS ORDERED: METO25ER PO ×2 (12:00)
[2022-04-03] MEDS ORDERED: XARELTO20 MG PO ×2 (12:00)
[2022-04-03] MEDS ORDERED: THERA-D2000 UNIT PO ×2 (12:01)
--- NOTE | 2022-04-03 16:56 | NUR ---
SHIFT SUMMARY- VSS. PT UP IN CHAIR ALL DAY. FAMILY AT BEDSIDE. APPETITE GOOD. PT AWAITING RIDE FOR D/C. PAPERWORK HAS BEEN DISCUSSED. PT RESTING NOW WITH CALL LIGHT IN REACH.
--- NOTE | 2022-04-03 21:02 | NUR ---
PT DISCHARGE PT'S RIDE ARRIVED TO PICK HIM AND HIS UP. PT'S POSSESSIONS TAKEN WITH PT. IV REMOVED ON PREVIOUS SHIFT. PT'S DISCHARGE AND DISCHARGE INSTRUCTIONS COMPLETED ON PREVIOUS SHIFT. PT'S 'S NURSE INFORMED THAT HER RIDE WAS HERE FOR PICKUP. PT AND HAD NO QUESTIONS REGARDING DISCHARGE. PT AND TAKEN VIA WHEELCHAIR TO FRIEND'S VEHICLE.
== END 2022-04-03 20:42 | disposition home or self-care (01) | DRG 853 ==
LOC: ER 11:50 → MEDS 13:42 → ICUW 13:42 → ICUE 13:42 → MEDS 03-15 23:30
PROVIDERS: Internal Medicine; Internal Medicine Critical Care Medicine; Nurse Practitioner Acute Care; Orthopaedic Surgery; Specialist; Student in an Organized Health Care Education/Training Program; ADMIT Internal Medicine
PROC: 3E03329 Introduction of Other Anti-infective into Peripheral Vein, Percutaneous Approach (ICD-10-PCS; 2022-03-13)
PROC: 5A1935Z Respiratory Ventilation, Less than 24 Consecutive Hours (ICD-10-PCS; 2022-03-13)
PROC: 0Y6J0Z3 Detachment at Left Lower Leg, Low, Open Approach (ICD-10-PCS; principal; 2022-03-13 14:00)
DX: A41.01 Sepsis due to Methicillin susceptible Staphylococcus aureus (principal); A48.0 Gas gangrene; E11.10 Type 2 diabetes mellitus with ketoacidosis without coma; J96.01 Acute respiratory failure with hypoxia; M72.6 Necrotizing fasciitis; E87.1 Hypo-osmolality and hyponatremia; E44.0 Moderate protein-calorie malnutrition; E11.52 Type 2 diabetes mellitus with diabetic peripheral angiopathy with gangrene; I70.262 Atherosclerosis of native arteries of extremities with gangrene, left leg; I48.91 Unspecified atrial fibrillation; I10 Essential (primary) hypertension; E83.42 Hypomagnesemia; Z98.890 Other specified postprocedural states; R65.20 Severe sepsis without septic shock; D63.8 Anemia in other chronic diseases classified elsewhere
CPT/HCPCS: 0241U; 36415; 36416; 36600; 51702; 71045; 73030; 73552; 73590; 73701; 80048; 80053; 80069; 80202; 81001; 82010; 82248; 82803; 82947; 83036; 83605; 83735; 83880; 84100; 84145; 84443; 84484; 85014; 85018; 85025; 85027; 85610; 85651; 85730; 86140; 87040; 87086; 87147; 88307; 88311; 93005; 93010; 93306; 94002; 94003; 94760; 96365-59; 96367-59; 97110; 97116; 97129; 97162; 97166; 97530; 97535; 99285-25; A9270; C9113; J0692; J0696; J1100; J1650; J1815; J2185; J2250; J2370; J2405; J2704; J3010; J3370; J3475; J3480; J7042; J7050; J7120; Q9967

== ENCOUNTER 2022-04-15 22:10 | Emergency (ER) | payer OTHER ==
[~2022-04-15] VITALS: Ht 190.5 cm; Wt 99.8 kg
[~2022-04-15 22:10] MED LIST: BASAGLAR K100 UNIT/1 SC; METO25ER PO; THERA-D2000 UNIT PO; XARELTO20 MG PO
[2022-04-15] MEDS ORDERED: Cyclobenzaprine10 MG PO (23:58)
== END 2022-04-16 01:51 | disposition home or self-care (01) ==
LOC: ER 22:10
DX: M54.50 Low back pain, unspecified (principal); E11.9 Type 2 diabetes mellitus without complications; I10 Essential (primary) hypertension; Z79.899 Other long term (current) drug therapy; Z79.01 Long term (current) use of anticoagulants; Z79.4 Long term (current) use of insulin
CPT/HCPCS: 96372; 99283-25; A9270; J1885

== ENCOUNTER 2022-04-22 12:33 | Inpatient (IN) | payer OTHER ==
[~2022-04-22] VITALS: Ht 190.5 cm; Wt 72.1 kg
[~2022-04-22 12:33] MED LIST changes: +Cyclobenzaprine10 MG PO
[2022-04-22 14:14] LABS: BASOPHILS ABSOLUTE AUTO 0.05 K/mm3 (0.00-0.23); BASOPHILS PERCENT AUTO 1 % (0-2); EOSINOPHILS ABSOLUTE AUTO 0.07 K/mm3 (0.00-0.68); EOSINOPHILS PERCENT AUTO 1 % (0-6); Hematocrit 38.8 % (37.0-53.0); Hemoglobin 12.5 g/dL (13.5-17.5); IMMATURE GRAN ABSOLUTE AUTO 0.07 K/mm3 (0.00-0.10); IMMATURE GRAN PERCENT AUTO 1 % (0-1); LYMPHOCYTES ABSOLUTE AUTO 1.14 K/mm3 (0.84-5.20); LYMPHOCYTES PERCENT AUTO 11 % (21-46); MONOCYTES ABSOLUTE AUTO 0.59 K/mm3 (0.16-1.47); MONOCYTES PERCENT AUTO 6 % (4-13); Mean Corpuscular HGB 27.5 pg (26.0-34.0); Mean Corpuscular HGB Conc 32.2 g/dL (31.5-36.5); Mean Corpuscular Volume 86 fL (80-100); NEUTROPHILS ABSOLUTE AUTO 8.72 K/mm3 (1.96-9.15); NEUTROPHILS PERCENT AUTO 82 % (41-73); RDW Coefficient Variation 15.9 % (11.7-14.2); RDW Standard Deviation 49.1 fL (35.1-46.3); Red Blood Cell Count 4.54 M/mm3 (4.30-5.90); White Blood Cell Count 10.64 K/mm3 (4.00-11.30)
[2022-04-22 14:32] LABS: Albumin, Blood 2.4 g/dL (3.4-5.0); Albumin/Globulin Ratio 0.5 (0.8-1.8); Bilirubin, Total 0.6 mg/dL (0.1-1.0); Bun/Creatinine Ratio 22.7 (12.0-20.0); Calcium, Blood 8.9 mg/dL (8.5-10.1); Creatinine, Blood 0.48 mg/dL (0.60-1.20); Globulin, Blood 4.9 g/dL (2.2-4.0); Potassium, Blood 4.5 mmol/L (3.5-5.5); Total Protein, Blood 7.3 g/dL (6.4-8.2)
[2022-04-22 14:56] LABS: Base Excess Venous 1.4 mmol/L; Bicarbonate Venous 25.1 mmol/L (24.0-30.0); pH Blood Venous 7.39 (7.34-7.37)
--- NOTE | 2022-04-22 21:45 | NUR ---
PT T/F'D VIA GURNEY TO ROOM 331 AT 212. HE'S A/OX4 BUT HASN'T BEEN CARING FOR HIMSELF SINCE RECENT D/C. HE HAD MANY DIFFERENT REASONS FOR THIS (IE.LACKING FUNDS, INSURANCE, TRANSPORT, ASSISTANCE, EDUCATION, EQUIPMENT ETC). PT HAD A RECENT L.BKA W/SUTURES STILL INTACT AND STATED "NOONE EVER REMOVED THEM". HE ALSO ADMITTED TO NEVER ATTENDING F/U APPOINTMENTS D/T "NO WAY OF GETTING THERE". PT APPARENTLY HAS A MOTOR SCOOTER AT HOME BUT CLAIMS TO CRAWL TO GET AROUND D/T "NO BATTERIES FOR THE CHAIR." HE SAID HE WASN'T MANAGING HIS DM 2 D/T "NEVER BEING TAUGHT, INSULIN TOO EXPENSIVE AND LOSING GLUCOMETER SOMEWHERE IN HIS HOUSE". CBG 372 AND PLAN TO REEVALUTATE FOR IMPROVEMENT/WORSENING. PT APPEARS WEAK BUT CAN REPOSITION SELF IN BED. PLAN TO ENSURE TURN SCHEDULE D/T EXCORIATED COCCYX. AREA CLEANSED, PHOTOS AND CONSENT OBTAINED AND MEPILEX APPLIED. URINAL PROVIDED AT BEDSIDE AND PT AWARE TO ALERT STAFF IF HE NEEDS TO GET OOB. HE DEMONSTRATED CALL LIGHT USE BUT BED ALARM IS ON FOR FALL RISK AND POSSIBLE IMPULSIVITY.
--- NOTE | 2022-04-23 00:41 | NUR ---
CBG TRENDING DOWNWARD, NOW 267.
--- NOTE | 2022-04-23 04:50 | NUR ---
SUMMARY: PT A/OX3, SPECIFIES NEEDS AND IS PLEASANT/COOPERATIVE W/CARE BUT HAS BEEN UNABLE TO APPROPRIATELY CARE FOR SELF LATELY, SEE PREVIOUS NOTE FOR THOSE DETAILS. HE HAS TYPE 2 DM UNCONTROLLED AT BASELINE THAT PT DESCRIBES BEING D/T MONETARY ISSUES, LACKING SUPPLIES/MEDS AND EDUCATION. CGB WAS 372 UPON ARRIVAL TO FLOOR BUT HAS BEGUN TRENDING DOWNWARD AFTER RECIEVING 2O UNITS GLARGINE IN ER. HE HAS A RECENT L.BKA W/SUTURES STILL INTACT D/T MISSING F/U APPOINTMENT AN OUTPATIENT. HE ALSO HAS EXCORIATION AND SBD TO BUTTOCKS. ATTENDS CHANGED FOR SMEAR INCONTINENCE, AREA CLEANSED AND MEPILEX APPLIED. PHOTOS TAKEN OF SKIN ISSUES AND CONSENT OBTAINED. TURN SCHEDULE MAINTAINED AND URINAL AT BEDSIDE. PT CLAIMS HE CRAWLS AROUND HOUSE TO GET AROUND D/T W/C BROKEN AND MOTORIZED SCOOTER W/O BATTERIES. HIS WAS ADMITTED TO [facility] 04/22/22 AND PT IS HOPEFUL TO JOIN HER. CARE MANAGEMENT WORKING ON PLACEMENT. NO ACUTE CHANGES, VSS/AFEBRILE. WCTM AND REPORT TO DAY RN.
[2022-04-23 05:43] LABS: BASOPHILS ABSOLUTE AUTO 0.06 K/mm3 (0.00-0.23); BASOPHILS PERCENT AUTO 1 % (0-2); EOSINOPHILS ABSOLUTE AUTO 0.15 K/mm3 (0.00-0.68); EOSINOPHILS PERCENT AUTO 2 % (0-6); Hematocrit 40.1 % (37.0-53.0); Hemoglobin 12.7 g/dL (13.5-17.5); IMMATURE GRAN ABSOLUTE AUTO 0.08 K/mm3 (0.00-0.10); IMMATURE GRAN PERCENT AUTO 1 % (0-1); LYMPHOCYTES ABSOLUTE AUTO 1.89 K/mm3 (0.84-5.20); LYMPHOCYTES PERCENT AUTO 19 % (21-46); MONOCYTES ABSOLUTE AUTO 0.61 K/mm3 (0.16-1.47); MONOCYTES PERCENT AUTO 6 % (4-13); Mean Corpuscular HGB 27.4 pg (26.0-34.0); Mean Corpuscular HGB Conc 31.7 g/dL (31.5-36.5); Mean Corpuscular Volume 87 fL (80-100); Mean Platelet Volume 9.8 fL (9.1-12.4); NEUTROPHILS ABSOLUTE AUTO 7.38 K/mm3 (1.96-9.15); NEUTROPHILS PERCENT AUTO 73 % (41-73); Platelet Count 428 K/mm3 (150-400); RDW Coefficient Variation 15.7 % (11.7-14.2); RDW Standard Deviation 49.3 fL (35.1-46.3); Red Blood Cell Count 4.63 M/mm3 (4.30-5.90); White Blood Cell Count 10.17 K/mm3 (4.00-11.30)
[2022-04-23 06:02] LABS: Albumin, Blood 2.5 g/dL (3.4-5.0); Anion Gap 8 mmol/L (6-16); Blood Urea Nitrogen 10 mg/dL (8-24); Bun/Creatinine Ratio 22.2 (12.0-20.0); CO2, Blood 27 mmol/L (21-32); Calcium, Blood 8.9 mg/dL (8.5-10.1); Chloride, Blood 99 mmol/L (98-108); Creatinine, Blood 0.45 mg/dL (0.60-1.20); Glomerular Filtration Rate 119 (60-); Glucose, Blood 227 mg/dL (70-99); Phosphorus, Blood 3.2 mg/dL (2.5-4.9); Potassium, Blood 3.8 mmol/L (3.5-5.5); Sodium, Blood 134 mmol/L (136-145)
--- NOTE | 2022-04-23 11:41 | NUR ---
Spiritual Care Visit. Pt. is awake in bed and welcomes my visit. Pt. is unsettled as he is waiting for clarity on his diagnosis. Pt. is pleasant and rapport is re-established quickly as this Pt. is a readmit. Facilitated a life update, regarding family health concerns. Pt. displays evidence of engagement and awareness. Prayed with Pt. and verbalized gratitude for the spiritual care visit.
--- NOTE | 2022-04-23 17:55 | NUR ---
SHIFT SUMMARY PATIENT IS ALERT AND ORIENTED. PATIENT HAS BEEN PLEASENT AND COOPERATIVE WITH CARE. PATIENT HAS HAD NO ACUTE EVENTS THIS SHIFT. VITAL SIGNS REVIEWED. PATIENTS CBG HAS BEEN ELEVATED BUT LOWER THAN ADMISSION. BED IN LOCKED AND LOWEST POSITION. PATIENT HAS HAD NO COMPLAINTS OF PAIN, NAUSEA, SOB OR VOMITTING THIS SHIFT. BED IN LOCKED AND LOWEST POSITION. CALL LIGHT IN PLACE. WILL MONITOR UNTIL SHIFT CHANGE.
--- NOTE | 2022-04-24 00:41 | NUR ---
04/23/226 PT LYING IN BED, RECENT L BKA ON 03/13/22, STUMP IS DRY, SCABBING AND HAS STITCHES. BOTTOM IS SLIGHTLY RED. NO OTHER APPARENT SIGNS OF DISTRESS. PT DENIED PAIN BUT REQUESTED AND RECIEVED PAIN MED FOR PREVENTATIVE. WILL EVAL FOR EFFECT. CALL LIGHT IS IN REACH.
--- NOTE | 2022-04-24 02:09 | NUR ---
0000 PT LYING IN BED, EYES CLOSED, APPEARS TO BE RESTING. WAKES EASILY TO VERBAL STIMULI. NO APPARENT SIGNS OF DISTRESS. CALL LIGHT IS IN REACH. DENIES NEED FOR ANYTHING AT THIS TIME.
--- NOTE | 2022-04-24 02:10 | NUR ---
PT LYING IN BED, EYES CLOSED, APPEARS TO BE RESTING. BREATHING IS EVEN, UNLABORED. NO APPARENT SIGNS OF DISTRESS. CALL LIGHT IS IN REACH.
--- NOTE | 2022-04-24 04:27 | NUR ---
PT LYING IN BED, EYES CLOSED, APPEARS TO BE RESTING. BREATHING IS EVEN, UNLABORED. NO APPARENT SIGNS OF DISTRESS. CALL LIGHT IS IN REACH.
--- NOTE | 2022-04-24 04:28 | NUR ---
PT IS AAO X 4, ON RA. BS WAS 109. SLIGHT REDNESS ON BOTTOM. RECENT L BKA, WOUND IS DRY, SCABBED, AND HAS STITCHES.
--- NOTE | 2022-04-24 06:14 | NUR ---
PT REQUESTED AND RECIEVED PAIN MEDS, WILL EVAL FOR EFFECT. NO OTHER APPARENT SIGNS OF DISTRESS. CALL LIGHT IS IN REACH. NO OTHER CHANGES THIS SHIFT.
--- NOTE | 2022-04-24 17:04 | NUR ---
SHIFT SUMMARY: Patient A&OX4. Pleasant and cooperative with care. Uses call light appropriately and able to advocate for his needs. Patient was able to work with PT today and participate some exercise in bed lying flat, but did not tolerate when PT attempt to sit patient up in bed due to pain. Patient recieved a couple dose of PRN pain meds for pain per EMAR. Patient recieved scheduled meds including antibiotics this shift. L BKA stump stitches was removed today. Stump healing with no sign of redness or swelling to the site. Patient uses urinal in bed independently. Vital signs reviewed. Bed in lowest position, locked, call light, water and urinal within reach.
--- NOTE | 2022-04-25 04:55 | NUR ---
TARUN: PATIENT CONT AND INC OR URINE TONGIHT. CHANGED DRESSING TO PATIENT BUTTOCKS WELL ALL BEDDING. PATIENT TURNS INDEPENDENTLY IN BED. MEDICATED FOR PAIN WITH OXY. IV FLAGYL GIVEN. NO ACUTE EVENTS OVERNIGHT. PATIENT VSS. AOX4. PATIENT VERBALIZED THAT HE IS LOOKING FORWARD TO DISCHARGING, GETTING A SENSOR TO BETTER MANAGE HIS GLUCOSE AND GETTING TO SEE HIS AND AUTISTIC SON WHO IS IN A FOSTER HOME CURRENTLY. 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
[2022-04-25 05:47] LABS: BASOPHILS ABSOLUTE AUTO 0.08 K/mm3 (0.00-0.23); BASOPHILS PERCENT AUTO 1 % (0-2); EOSINOPHILS PERCENT AUTO 2 % (0-6); Hematocrit 38.7 % (37.0-53.0); Hemoglobin 12.2 g/dL (13.5-17.5); IMMATURE GRAN ABSOLUTE AUTO 0.02 K/mm3 (0.00-0.10); IMMATURE GRAN PERCENT AUTO 0 % (0-1); LYMPHOCYTES ABSOLUTE AUTO 1.25 K/mm3 (0.84-5.20); LYMPHOCYTES PERCENT AUTO 20 % (21-46); MONOCYTES ABSOLUTE AUTO 0.52 K/mm3 (0.16-1.47); MONOCYTES PERCENT AUTO 8 % (4-13); Mean Corpuscular HGB 27.2 pg (26.0-34.0); Mean Corpuscular HGB Conc 31.5 g/dL (31.5-36.5); Mean Corpuscular Volume 86 fL (80-100); Mean Platelet Volume 9.4 fL (9.1-12.4); NEUTROPHILS ABSOLUTE AUTO 4.36 K/mm3 (1.96-9.15); NEUTROPHILS PERCENT AUTO 69 % (41-73); Platelet Count 334 K/mm3 (150-400); RDW Coefficient Variation 15.8 % (11.7-14.2); RDW Standard Deviation 49.9 fL (35.1-46.3); Red Blood Cell Count 4.49 M/mm3 (4.30-5.90); White Blood Cell Count 6.33 K/mm3 (4.00-11.30)
[2022-04-25 06:09] LABS: Bun/Creatinine Ratio 24.9 (12.0-20.0); Calcium, Blood 8.2 mg/dL (8.5-10.1); Creatinine, Blood 0.64 mg/dL (0.60-1.20); Potassium, Blood 3.8 mmol/L (3.5-5.5)
--- NOTE | 2022-04-25 17:38 | NUR ---
SHIFT SUMMARY: PATIENT A&OX4. PLEASANT AND COOPERATIVE WITH CARE. USES CALL LIGHT APPROPRIATELY AND ABLE TO ADVOCATE FOR HIS NEEDS. RECIEVED ALL SCHEDULED ANTIBIOTICS THIS SHIFT. PATIENT HAS BEEN CONTINENT AND USES URINAL T/O SHIFT. PATIENT DECLINE TO PARTICIPATE WITH PT TODAY D/T PAIN NOT ABLE TO SIT-UP IN BED. RECIEVED PRN PAIN MEDS PER EMAR. PATIENT REPORTS HAS GOOD RELIEF. SOCKS INPLACE TO L STUMP. NO ACUTE CHANGES THIS SHIFT. VITAL SIGNS REVIEWED. BED ALARM ON FOR SAFETY. BED IS LOCKED AND IN LOWEST POSITION. CALL LIGHT, BOTTLE WATER, AND URINAL WITHIN PATIENT REACH.
--- NOTE | 2022-04-26 03:59 | NUR ---
Summary: Patient has ongoing pain in his back and hips. Medicated per EMAR. Patient has heating pad at bedside. IV abx given. No acute events overnight. VSS. Patient able to move independently in bed and repositions self.
[2022-04-26 05:31] LABS: BASOPHILS ABSOLUTE AUTO 0.09 K/mm3 (0.00-0.23); BASOPHILS PERCENT AUTO 2 % (0-2); EOSINOPHILS ABSOLUTE AUTO 0.14 K/mm3 (0.00-0.68); EOSINOPHILS PERCENT AUTO 3 % (0-6); Hematocrit 39.6 % (37.0-53.0); Hemoglobin 12.6 g/dL (13.5-17.5); IMMATURE GRAN ABSOLUTE AUTO 0.04 K/mm3 (0.00-0.10); IMMATURE GRAN PERCENT AUTO 1 % (0-1); LYMPHOCYTES ABSOLUTE AUTO 1.31 K/mm3 (0.84-5.20); LYMPHOCYTES PERCENT AUTO 23 % (21-46); MONOCYTES ABSOLUTE AUTO 0.52 K/mm3 (0.16-1.47); MONOCYTES PERCENT AUTO 9 % (4-13); Mean Corpuscular HGB 27.4 pg (26.0-34.0); Mean Corpuscular HGB Conc 31.8 g/dL (31.5-36.5); Mean Corpuscular Volume 86 fL (80-100); Mean Platelet Volume 9.5 fL (9.1-12.4); NEUTROPHILS PERCENT AUTO 63 % (41-73); Platelet Count 302 K/mm3 (150-400); RDW Coefficient Variation 15.6 % (11.7-14.2); RDW Standard Deviation 49.1 fL (35.1-46.3)
[2022-04-26 05:46] LABS: Albumin, Blood 2.3 g/dL (3.4-5.0); Anion Gap 5 mmol/L (6-16); Blood Urea Nitrogen 15 mg/dL (8-24); Bun/Creatinine Ratio 24.8 (12.0-20.0); CO2, Blood 28 mmol/L (21-32); Calcium, Blood 8.3 mg/dL (8.5-10.1); Chloride, Blood 100 mmol/L (98-108); Creatinine, Blood 0.61 mg/dL (0.60-1.20); Glomerular Filtration Rate 109 (60-); Glucose, Blood 134 mg/dL (70-99); Potassium, Blood 3.9 mmol/L (3.5-5.5); Sodium, Blood 133 mmol/L (136-145)
--- NOTE | 2022-04-27 04:58 | NUR ---
[employer] SUMMARY: A&Ox4. PLEASANT AND COOPERATIVE WITH CARE. CALLS APPROPRIATELY FOR ASSISTANCE AND IS ABLE TO COMMUNICATE HIS NEEDS. SALINE LOCKED IN LEFT HAND. ANTICIPATE POWERGLIDE INSERTION TODAY FOR LONG-TERM ADMINISTRATION OF IV ANTIBTIOTICS. PLAN TO DC TO SNF WHEN ABLE. C/O CONSTIPATION AND BOWEL CARE INITIATED YESTERDAY; NO BM OF YET. VSS. WILL REPORT TO ONCOMING RN.
--- NOTE | 2022-04-27 17:44 | NUR ---
SHIFT SUMMARY NO ACUTE CHANGES DURING SHIFT CHANGE. PT ALERT AND ORIENTED, CALLS APPROPRIATELY. PT C/O BACK PAIN, UNABLE TO SIT UP OR CHANGE POSITIONS. REFUSES TO GET UP OR MOVE. MEDICATED WITH PRN PAIN MEDS. PT PENDING FACILITY PLACEMENT FOR CONTINUED IV ABX TREATMENT. WILL CONTINUE TO MONITOR. CALL LIGHT WITHIN REACH.
--- NOTE | 2022-04-28 05:10 | NUR ---
DIRECTOR OF BUSINESS CONTINUITY SUMMARY: A&Ox4. PLEASANT AND COOPERATIVE WITH CARE. VSS. MEDICATED x2 PAIN. GLUCOSE 134; NO COVERAGE REQUIRED. NO BM REPORTED THIS SHIFT. ANTICIPATE DC TO SNF WHEN ACCEPTED. WILL REPORT TO ONCOMING RN.
--- NOTE | 2022-04-28 17:00 | NUR ---
SHIFT SUMMARY PT IS RECEIVING ABX FOR NECROTIZING FASCITIS S/P LBKA. PLAN IS TO CONTINUE 6 WEEKS OF IV ANTIBIOTICS, CARE MANAGEMENT TO FIND OPTIONS OF NURSING HOMES THAT CAN ACCOMODATE PT. PT AND ARE/PLAN TO BE RESIDENTS OF [facility]. OSTEOMYELITIS OF L3-L4. CHRONIC LOW BACK PAIN. IV INTACT TO LFA. MENTALLY, AT TIMES PT ALTERNATES BETWEEN DEPRESSED/HOPELESS TO DISCUSSING FOOTBALL SCORES ON TV. HE TOOK ENULOSE TODAY AND HAD A FIRM, DARK BROWN BM. LBKA WOUND IS INTACT, SCABBED. NO DRAINAGE, SWELLING OR INFLAMMATION NOTED. PT REPORTS CHRONIC LOW BACK PAIN. CALL LIGHT IN REACH, BED IN LOWEST POSITION. WILL CONTINUE TO MONITOR AND GIVE REPORT TO COMPUTER ARTIST NURSE.
--- NOTE | 2022-04-29 04:11 | NUR ---
ACID STRENGTH INSPECTOR SUMMARY: A&Ox4. PLEASANT AND COOPERATIVE WITH CARE. VSS. BM x2 THIS SHIFT. MEPILEX RIGHT GLUTEAL CLEFT SOILED AND CHANGED TWICE. CONTINUES TO STAY IN BED AND DOES NOT AMBULATE OR TRANSFER. MEDICATED FOR PAIN x1. GLUCOSE 185 THIS EVENING; NO COVERAGE ORDERED. AWAITING SNF PLACEMENT TO COMPLETE IV ABT BEFORE PERMANENT PLACEMENT AT [facility]. WILL REPORT TO ONCOMING SHIFT.
--- NOTE | 2022-04-29 18:05 | NUR ---
PATIENT IS ALERT AND ORIENTED. HE REFUSED TO WORK MEANINGFULLY WITH PT TODAY. WHEN ASKED WHY HE DOESNT WANT TO WORK WITH PT, THE PATIENT STATES HE BELIEVES WITH HIS INFECTION, MOVEMENT COULD BREAK HIS BONES. THIS RN ENCOURAGED HIM TO TALK TO DR. MCKEON ABOUT THIS BELIEF OF HIS AND HE BECAME REALLY UPSET. PATIENT USES THE URINALS INDEPENDENTLY WITH SOME DRIBBLING IN HIS ATTENDS. HE HAS A GOOD APPETITE, EATING ALL OF HIS MEALS. PATIENT IS EAGER TO LEAVE THE HOSPITAL AND PLANS ON MOVING TO THE FACILITY WHERE HIS LIVES. PAIN MANAGED WITH TYLENOL THIS SHIFT. ENCOURAGED TO ROTATE OFF HIS BUTTOCKS AND OFFERED TO PLACE PILLOWS UNDER HIS HIPS BUT THE PATIENT DENIED AND AND SAID HE WOULD SLEEP ON HIS SIDES THROUGHOUT THE DAY. WILL CONTINUE TO MONITOR
--- NOTE | 2022-04-30 04:32 | NUR ---
SHIFT SUMMARY PT STATES NO PAIN TONIGHT, DID NOT REQUEST PAIN MEDS. CONTINUES TO BE CONTINENT USING BEDPAN AND URINAL. PT SLEPT ON HIS SIDE T/O MOST OF THE NIGHT TO RELIEVE PRESSURE OFF HIS SORE NEAR HIS GLUTEAL FOLD. ON RA, VSS, AOX4, PLEASANT AND COOPERATIVE WITH CARE.
--- NOTE | 2022-04-30 18:18 | NUR ---
SHIFT SUMMARY PT A&OX4 AND IN PLEASENT MOOD T/O SHIFT. UP IN RECLINER T/O SHIFT, PT PREFERS RECLINER STATES, "BED HURTS MY BACK." TOLERATING PO INTAKE WELL. CALL LIGHT W/IN REACH. PLAN FOR SNF PLACEMENT FOR EXTENDED IV ABX. C/O PAIN MEDICATED PER EMAR.
--- NOTE | 2022-05-01 04:36 | NUR ---
SHIFT SUMMARY: PATIENT REPORTING LOW BACK PAIN, MEDICATED WITH OXYCODONE X2 WITH GOOD EFFECT. SLEPT IN THE RECLINNER THIS SHIFT, DOES NOT LIKE THE BED. VSS.
[2022-05-01] MEDS ORDERED: ACET500 PO (10:25)
[2022-05-01] MEDS ORDERED: CEFTRIAXONE2 G1 IV (10:25)
[2022-05-01] MEDS ORDERED: DOCUZEN 8.6-501 EACH PO (10:26)
[2022-05-01] MEDS ORDERED: HUMALOG JU100 UNIT/2 SC (10:26)
[2022-05-01] MEDS ORDERED: OXYC5 PO (10:27)
[2022-05-01] MEDS ORDERED: LACT10SY PO (10:27)
[2022-05-01] MEDS ORDERED: Fleet Enema132 ML PR (10:57)
[2022-05-01] MEDS ORDERED: VISBIOME 112.51 EACH PO (10:57)
[2022-05-01] MEDS ORDERED: MIRALAX17 GM PO (10:57)
[2022-05-01 15:25] LABS: SARS-Cov-2 (COVID-19) PCR, MMC NEGATIVE (NEGATIVE)
--- NOTE | 2022-05-01 17:16 | NUR ---
DISCHARGE PT REPORT CALLED INTO [facility]. VSS. IV DCED, POWERGLIDE IN PLACE MADHU. PLAN FOR 5 WEEK ROCEPHIN. TOLERATING PO INTAKE. STUMP SOCK IN PLACE, INCISION CDI.
--- NOTE | 2022-05-03 18:45 | NUR ---
LATE ENTRY: SHIFT SUMMARY: PT A&O X4, PLEASANT AND COOPERATIVE. PT HAD COMPLAINTS OF ACHING PAIN IN HIPS AND LOWER BACK. PT UNABLE TO PARTICIPATE IN PT DUE TO PAIN. PT MEDICATED PER EMAR PROTOCOL. PT HASN'T HAD A BOWEL MOVEMENT IN 4 DAYS, PT HAS BOWEL TONES IN ALL FOUR QUADRANTS, NO PAIN WITH PALPITATION. PT RECEVIED MIRALAX AND PRUNE JUICE. PT ONLY ABLE TO SIT UP RIGHT AT 15 DEGREE ANGLE DUE TO PAIN. PT PAIN IS IMPROVED POST REASSESSMENT WITH OXYCODONE 5MG Q6H. PT LEFT BKA INCISION HAS NO INFLAMMATION,, REDNESS, AND INTACTED WITH SCABBING. PT IN BED RESTING WITH CALL LIGHT WITHIN REACH.
== END 2022-05-01 17:04 | DRG 637 ==
LOC: ER 12:33 → ERHOLD 12:34 → ER 12:34 → ERHOLD 12:34 → MEDS 15:39 → ERHOLD 21:27 → MEDS 04-23 15:39 → ERHOLD 04-23 15:39 → MEDS 05-01 17:04
PROVIDERS: Emergency Medicine; Family Medicine; Internal Medicine; ADMIT Internal Medicine
DX: E11.69 Type 2 diabetes mellitus with other specified complication (principal); K68.12 Psoas muscle abscess; M46.26 Osteomyelitis of vertebra, lumbar region; E87.1 Hypo-osmolality and hyponatremia; I10 Essential (primary) hypertension; E11.65 Type 2 diabetes mellitus with hyperglycemia; I48.91 Unspecified atrial fibrillation; M54.59 Other low back pain; M46.46 Discitis, unspecified, lumbar region; M60.88 Other myositis, other site; D63.8 Anemia in other chronic diseases classified elsewhere; Z79.4 Long term (current) use of insulin; Z79.899 Other long term (current) drug therapy; Z89.512 Acquired absence of left leg below knee; Z98.890 Other specified postprocedural states; Z79.01 Long term (current) use of anticoagulants
CPT/HCPCS: 36415; 72131; 72158; 80048; 80053; 80069; 82010; 82803; 82947; 83036; 85025; 85651; 86140; 87040; 96360; 96374; 97110; 97162; 99285-25; A9270; A9579; G0378; J0696; J1650; J1815; J7030; U0004

== ENCOUNTER 2022-05-10 12:39 | Emergency (ER) | payer OTHER ==
[~2022-05-10] VITALS: Ht 190.5 cm; Wt 72.6 kg
[~2022-05-10 12:39] MED LIST changes: +ACET500 PO; +CEFTRIAXONE2 G1 IV; +DOCUZEN 8.6-501 EACH PO; +Fleet Enema132 ML PR; +HUMALOG JU100 UNIT/2 SC; +LACT10SY PO; +MIRALAX17 GM PO; +OXYC5 PO; +VISBIOME 112.51 EACH PO
== END 2022-05-10 21:15 | disposition home or self-care (01) ==
LOC: ER 12:39
DX: Z45.2 Encounter for adjustment and management of vascular access device (principal); E11.9 Type 2 diabetes mellitus without complications; I10 Essential (primary) hypertension; Z87.891 Personal history of nicotine dependence
CPT/HCPCS: C1751; J0696

== ENCOUNTER → 2022-10-01 | Outpatient (CLI) | payer OTHER ==
[2022-10-01 16:28] LABS: Microalb/Creat Ratio UR, Rand 6.919 mg/g (0.000-30.000); Microalbumin, Random Urine 7.68 mg/L (0.000-20.000)
== END | disposition home or self-care (01) ==
LOC: LAB 10:46 → LAB SHORT 10:46
PROVIDERS: Internal Medicine Endocrinology, Diabetes & Metabolism
DX: E11.65 Type 2 diabetes mellitus with hyperglycemia (principal)
CPT/HCPCS: 82043; 82570

== ENCOUNTER 2022-11-10 15:44 | Emergency (ER) | payer OTHER ==
[~2022-11-10] VITALS: Ht 190.5 cm; Wt 72.6 kg
[2022-11-10 16:05] LABS: BASOPHILS ABSOLUTE AUTO 0.05 K/mm3 (0.00-0.23); BASOPHILS PERCENT AUTO 1 % (0-2); EOSINOPHILS ABSOLUTE AUTO 0.13 K/mm3 (0.00-0.68); EOSINOPHILS PERCENT AUTO 2 % (0-6); Hematocrit 43.9 % (37.0-53.0); Hemoglobin 14.4 g/dL (13.5-17.5); IMMATURE GRAN ABSOLUTE AUTO 0.01 K/mm3 (0.00-0.10); IMMATURE GRAN PERCENT AUTO 0 % (0-1); LYMPHOCYTES ABSOLUTE AUTO 1.81 K/mm3 (0.84-5.20); LYMPHOCYTES PERCENT AUTO 27 % (21-46); MONOCYTES ABSOLUTE AUTO 0.47 K/mm3 (0.16-1.47); MONOCYTES PERCENT AUTO 7 % (4-13); Mean Corpuscular HGB 30.1 pg (26.0-34.0); Mean Corpuscular HGB Conc 32.8 g/dL (31.5-36.5); Mean Corpuscular Volume 92 fL (80-100); Mean Platelet Volume 10.1 fL (9.1-12.4); NEUTROPHILS ABSOLUTE AUTO 4.27 K/mm3 (1.96-9.15); NEUTROPHILS PERCENT AUTO 63 % (41-73); Platelet Count 219 K/mm3 (150-400); RDW Coefficient Variation 13.5 % (11.7-14.2); RDW Standard Deviation 46.2 fL (35.1-46.3); Red Blood Cell Count 4.79 M/mm3 (4.30-5.90); White Blood Cell Count 6.74 K/mm3 (4.00-11.30)
[2022-11-10 18:56] LABS: Albumin, Blood 3.6 g/dL (3.4-5.0); Albumin/Globulin Ratio 1.1 (0.8-1.8); Bilirubin, Total 0.7 mg/dL (0.1-1.0); Bun/Creatinine Ratio 21.6 (12.0-20.0); Calcium, Blood 8.9 mg/dL (8.5-10.1); Creatinine, Blood 0.74 mg/dL (0.60-1.20); Globulin, Blood 3.3 g/dL (2.2-4.0); Potassium, Blood 3.8 mmol/L (3.5-5.5); Total Protein, Blood 6.9 g/dL (6.4-8.2)
[2022-11-10 22:26] VITALS: BP 160/90
== END 2022-11-10 22:28 | disposition home or self-care (01) ==
LOC: ER 15:44
PROVIDERS: Student in an Organized Health Care Education/Training Program
DX: H53.8 Other visual disturbances (principal); I48.20 Chronic atrial fibrillation, unspecified; E11.9 Type 2 diabetes mellitus without complications; I10 Essential (primary) hypertension; Z79.4 Long term (current) use of insulin; Z79.01 Long term (current) use of anticoagulants; Z79.899 Other long term (current) drug therapy; Z87.891 Personal history of nicotine dependence
CPT/HCPCS: 70450; 80053; 85025; 93005; 93010; 99284-25; A9270

== ENCOUNTER → 2024-08-19 | Outpatient (CLI) | payer OTHER ==
[2024-08-19 22:02] LABS: Microalb/Creat Ratio UR, Rand Unable to Calculate mg/g (0.000-30.000); Microalbumin, Random Urine <5.000 mg/L (0.000-20.000)
== END | disposition home or self-care (01) ==
LOC: LAB SHORT 12:00 → LAB 12:00
PROVIDERS: Nurse Practitioner Family
DX: E11.3293 Type 2 diabetes mellitus with mild nonproliferative diabetic retinopathy without macular edema, bilateral (principal); E11.42 Type 2 diabetes mellitus with diabetic polyneuropathy
CPT/HCPCS: 82043; 82570